=== PATIENT | male | born 1980 | race Caucasian/White ===

== ENCOUNTER 2019-03-24 23:04 | Observation (INO) ==
[2019-03-25] MEDS ORDERED: NORMAL SALINE 1,000 ML IV ONE (00:13)
[2019-03-25] MEDS ORDERED: ONDANSETRON HCL/PF 2 MG/ML VIAL IV PRN (00:13)
--- NOTE | 2019-03-25 00:19 | ERNOTE ---
Abdominal HPI - Narrative Date of Service: 03/25/19 - General Chief Complaint: Abdominal Pain Time Seen by Provider: 03/25/19 00:02 Source: patient, past records Exam Limitations: no limitations - Immun/Allergies/Home Medications Immunizatons: IMMUNIZATION HX Immunizations Up to Date Yes Allergies/Adverse Reactions: Allergies No Known Allergies Allergy (Unverified 03/24/19 23:17) Home Medications: HOME MEDICATIONS NK 03/24/19 [Last Taken Unknown] - History of Present Illness Narrative: This is a 38-year-old gentleman transferred from [facility]. Patient reports around 130 this afternoon he started having right lower quadrant pain. Described as mild to moderate at first. Worse with pressing. Been getting worse throughout the day. Appetite has gone down. Hurts to cough. Does not hurt with bumps in the road. Was seen at the outside hospital and was found to have a white count. CAT scan was performed and the CAT scan demonstrates an appendix at 7 to 8 mm, upper limits of normal, with a significant amount of surrounding edema consistent with early appendicitis. The appendix is located retrocecally. He was transferred here after I spoke with the surgeon on-call, Dr. Nichols who agreed to accept the patient. He came POV. Last meal was this afternoon. Is doing okay pain is only of 3 or 4 right now. No fever that he is aware of. Review of Systems - Review of Systems Constitutional: Present: no symptoms reported EYE: Present: no symptoms reported ENT: Present: no symptoms reported Respiratory: Present: no symptoms reported Cardiology: Present: no symptoms reported Gastrointestinal/Abdominal: Present: See HPI, abdominal pain, eating less Genitourinary: Present: no symptoms reported Musculoskeletal: Present: no symptoms reported Skin: Present: no symptoms reported Neurological: Present: no symptoms reported Endocrine: Present: no symptoms reported Hematologic/Lymphatic: Present: no symptoms reported Psych: Present: no symptoms reported All Other Systems: All systems neg except as marked Medical History (Updated 03/24/19 @ 23:20 by Dorinda Magallanes) No pertinent past medical history Surgical History: Surgical History (Updated 03/24/19 @ 23:20 by Dorinda Magallanes) Hx of vasectomy Family History: Family History (Updated 03/24/19 @ 23:21 by Dorinda Magallanes) Mother Hypertension Uncle Hypertension Social History: Preferred Language Singaporean Smoking Status Current every day smoker Alcohol Use occasionally No Social History Section defined Physical Exam - Physical Exam General Appearance: Present: wd/wn, alert, no apparent distress Head Exam: Present: normal inspection Eye Exam: Normal inspection: bilateral, PERRL: bilateral Ears, Nose, Throat: Present: normal ENT inspection Neck: Present: normal inspection, nontender Respiratory: Present: no respiratory distress, normal breath sounds, lungs clear Cardiovascular/Chest: Present: regular rate, rhythm, no murmur Gastrointestinal/Abdominal: Present: other - Abdomen is soft with normal bowel sounds. He does have a psoas sign on the right. No significant tenderness to palpation anywhere other than the right lower quadrant. No guarding. No real rebound. Negative Ros vague sign. The pain is at McBurney's point Back Exam: Present: normal inspection, no vertebral tenderness Extremity Exam: Present: normal inspection, normal range of motion, no edema Neurological Exam: Present: alert, oriented, normal mood/affect, no motor/sensory deficits Skin Exam: Present: normal color, warm/dry Lymphatic Exam: Present: no adenopathy Progress - Vital Signs Patient's Vital Signs:: I have reviewed the patient's vital signs. Vital Signs: Vital Signs 03/24/19 23:13 Temperature 37 C Pulse Rate 96 Respiratory Rate 18 Blood Pressure 127/73 O2 Sat by Pulse Oximetry 96 - Progress/Reassessment Chief Complaint: Abdominal Pain Plan - Plan Plan: I performed an exam and spoke with the surgeon. She is planning on doing the surgery in the morning. She is agreed that Mefoxin would be appropriate. We will keep n.p.o. Giving fluids. Will give pain medicine and nausea medicine orders for the floor. Departure Clinical Impression: Appendicitis - Departure Disposition: Still a patient Condition: Good
[2019-03-25] MEDS: CEFOXITIN SODIUM 2 GM in DEXTROSE 5 % IN WATER 100 ML IV SCH ×4 (00:31→06:00)
[2019-03-25] MEDS: MORPHINE SULFATE 4 MG/ML SYRG IV SCH ×3 (03:49→08:13)
[2019-03-25] MEDS ORDERED: RINGER'S SOLUTION,LACTATED 1,000 ML IV PRN (07:41)
--- NOTE | 2019-03-25 07:41 | ANES ---
Anesthesia Pre Procedure Eval Vitals/Labs: Last Vital Signs Temp 36.9 C 03/25/19 06:15 Pulse 91 03/25/19 06:15 Resp 16 03/25/19 06:15 BP 105/68 03/25/19 06:15 Pulse Ox 96 03/25/19 06:15 HOME MEDICATIONS NK 03/24/19 [Last Taken Unknown] Allergies/Adverse Reactions: Allergies Allergy/AdvReac Type Severity Reaction Status Date / Time No Known Allergies Allergy Verified 03/25/19 01:02 - Planned Procedure Planned Procedure: APPY Medication List Reviewed:: Yes Allergies Verified: Yes Medical History (Updated 03/25/19 @ 00:19 by Percy Brand MD) No pertinent past medical history Surgical History (Updated 03/24/19 @ 23:20 by Dorinda Magallanes) Hx of vasectomy Family History (Updated 03/24/19 @ 23:21 by Dorinda Magallanes) Mother Hypertension Uncle Hypertension - Family Anesthesia History Family History:: no untoward family reactions to anesthesia, no familial bleeding tendencies, no family history of clotting disorders, no family history of premature - Airway/Neck/Teeth Within Normal Limits:: Yes Teeth Condition: intact Mallampatti Score: 2 Thyromental (T-M) distance: > 6 cm Mandibulo Hyoid distance: > 3 cm - Respiratory Respiratory Physical: lungs clear Smoking Status: Current every day smoker Discussed smoking cessation including day of surgery: Yes Sleep Apnea currently treated: No Sleep Apnea by current assessment: No Discussed Risks/Treatment of TJ: No - Cardiovascular Tolerate Activity: Good Heart Sounds: S1 & S2, Regular - Anesthesia Assessment and Plan ASA Class: PS, II Anesthesia Type Plan: General ET
[2019-03-25] MEDS ORDERED: CEFOXITIN SODIUM 2 GM in DEXTROSE 5 % IN WATER 100 ML IV ONE ×2 (08:03)
--- NOTE | 2019-03-25 08:03 | HP ---
Chief Complaint - Chief Complaint Date of Service: 03/25/19 Time of Service: 07:59 Chief Complaint: acute appendicitis History of Present Illness: Osiel is a pleasant 38-year-old gentleman who developed abdominal pain around 1:30 in the afternoon yesterday. The pain began to worsen. His appetite has decreased. He has pain with movement and was riding in the car. He was seen at an outside hospital and had a CT scan which was consistent with appendicitis. He was transferred here. He is otherwise healthy. He has never had anything like this before. He does not take any home medications. His never had surgery before. Medical History (Updated 03/25/19 @ 00:19 by Percy Brand MD) No pertinent past medical history Surgical History: Surgical History (Updated 03/24/19 @ 23:20 by Dorinda Magallanes) Hx of vasectomy Family History: Family History (Updated 03/24/19 @ 23:21 by Dorinda Magallanes) Mother Hypertension Uncle Hypertension Social History: Patient Lives/Resources With Spouse Utilized Occupation unemployed Preferred Language Maori Do you have any religion or No cultural preference? Smoking Status Current every day smoker Have you smoked in the past 12 Yes months Alcohol Use occasionally No Social History Section defined Review Of Systems (GEN) - Review of Systems Generalized/Overall Review: Present: Malaise EENTM: Present: No Symptoms Reported Respiratory: Present: No Symptoms Reported Cardiac: Present: No Symptoms Reported Abdominal: Present: Abdominal Pain Genitourinary: Present: No Symptoms Reported Musculoskeletal: Present: No Symptoms Reported Neurological: Present: No Symptoms Reported Skin: Present: No Symptoms Reported Endocrine: Present: No Symptoms Reported Immunizations: IMMUNIZATION HX Immunizations Up to Date Yes Allergies/Adverse Reactions: Allergies Allergy/AdvReac Type Severity Reaction Status Date / Time No Known Allergies Allergy Verified 03/25/19 01:02 Home Medications: HOME MEDICATIONS NK 03/24/19 [Last Taken Unknown] Exam - Exam Vital Signs: Vital Signs - Last Taken Temp 36.9 C 03/25/19 06:15 Pulse 91 03/25/19 06:15 Resp 16 03/25/19 06:15 BP 105/68 03/25/19 06:15 Pulse Ox 96 03/25/19 06:15 Constitutional: Present: Alert, Oriented x3, Cooperative ENT Exam: Present: hearing grossly normal Eye Exam: bilateral eye: normal inspection Neck: Present: supple Back Exam: Present: normal inspection Breasts: Present: Exam deferred Respiratory: Present: lungs clear, normal breath sounds Cardiovascular/Chest: Present: regular rate, rhythm Abdomen: Present: soft, no rebound tenderness, tender /Rectal: Present: Exam deferred Extremity: Present: normal range of motion Skin Exam: Present: normal color Neurologic: Present: electronic video games servicer II-XII nml as tested Appearance: Present: appropriate appearance, appropriate insight Eye contact: Present: cooperative, good eye contact Thoughts: Present: normal thought pattern Assessment/Plan - Narrative Narrative: Patient will be taken to the operating room for laparoscopic possible open appendectomy. Risks and benefits of the procedure were discussed with the patient including bleeding, infection, and damage to other organs. He voices understanding and would like to proceed. He has been given antibiotics. We will proceed with going to the operating room this morning. Thank you for allowing me to participate in the care of your patient. - Assessment/Plan (1) Appendicitis Problem: Acute
[2019-03-25] MEDS ORDERED: BUPIVACAINE HCL/EPINEPHRINE 50 ML VIAL IJ ONE (08:55)
[2019-03-25] MEDS ORDERED: HYDROcodone/ACETAMINOPHEN 1 EACH TABLET PO PRN (09:12)
[2019-03-25] MEDS ORDERED: ACETAMINOPHEN 325 MG TABLET PO PRN (09:12)
[2019-03-25] MEDS ORDERED: IBUPROFEN 800 MG TABLET PO PRN (09:12)
[2019-03-25] MEDS ORDERED: POTASSIUM CHLORIDE 20 MEQ in DEXTROSE 5%-0.5 NORMAL SALINE 990 ML IV SCH (09:15)
--- NOTE | 2019-03-25 09:15 | OR ---
Operative Report - Dictated Report Narrative: Date of Service: 03/25/19 Procedure: laparoscopic appendectomy Pre-procedure diagnosis: acute appendicitis Post-procedure diagnosis: same Surgeon: Dr. Margot Nichols Anesthesia: general Indication for procedure: Osiel is a pleasant 38-year-old male with acute appendicitis. Description of procedure: After appropriate informed consent was obtained patient was taken to the operating room, placed in the supine position. General anesthesia was achieved. The RN placed a Stubbs catheter. The patient was prepped and draped in the usual sterile fashion. A 5 mm periumbilical incision was made, hemostat was used to dissect down to the fascia. A Veress needle was inserted, a saline drop test was performed which was satisfactory. The abdomen was insufflated to 15 mmHg. A 5mm blunt trocar was placed at the umbilicus. The camera was inserted, there was no evidence of a trocar injury. A 12 mm trocar was placed in the left lower quadrant of the abdomen. A 5 mm trocar was placed in the suprapubic region. The patient was placed in a head down, rotated left position, to facilitate exposure. The appendix was identified, it appeared consistent with acute appendicitis. A window was made in the mesoappendix. The 45 mm echelon stapler with the white load was placed across the base of the appendix. There was good hemostasis. The echelon 45 mm stapler with a white load was then placed across the mesoappendix. There was good hemostasis. The appendix was removed through an Endo Catch bag. The abdomen was inspected and the staple lines were intact, with good hemostasis. The remainder of the abdomen was inspected and was satisfactory. The 12 mm trocar site was closed with an 0 Vicryl suture. The abdomen was desufflated. Local anesthetic was injected. The incisions were closed with inverted interrupted 4-0 Monocryl sutures. Mastisol and Steri-Strips were applied. The patient tolerated the procedure well and was transported to the PACU in satisfactory condition. Estimated blood loss: minimal Complications: none Specimens to pathology: appendix Disposition: The patient will be admitted to the floor for observation.
--- NOTE | 2019-03-25 09:21 | ANES ---
Post Anesthesia Discharge - Transfer of Care Transfer of Care handoff given to nurse: Yes - Discharge from PACU Discharge from PACU when meets criteria: Yes - Discharge to ASU Discharge to ASU-no complications/pt stable: Yes
--- NOTE | 2019-03-25 09:44 | DS ---
(1) Appendicitis Problem: Acute Qualifiers: Appendicitis type: acute appendicitis Appendicitis gangrene presence: without gangrene Appendicitis perforation presence: without perforation Appendicitis abscess presence: without abscess Description of Stay: Patient was admitted through the emergency room. He was transferred from [place]. He was found to have acute appendicitis on CT scan. He was admitted to the hospital overnight. He was taken to the operating room in the morning. His surgery was uneventful. It was consistent with acute appendicitis, no signs of perforation or gangrene. If he does well postoperatively he can discharge home later today. Procedures Performed: see notes below List Procedures: Laparoscopic appendectomy Discharge Location: Home Disposition: Home self-care Condition: Good Face to Face Encounter completed per [facility] Guidelines: No Discharge Activity: Activity as tolerated Discharge Diet: General/regular food Prescriptions (Any new or edited meds): HYDROcodone/ACETAMINOPHEN [Chinle 5-325] 2 ea PO Q6H PRN #20 tab PRN Reason: Moderate Pain (Pain Scale 4-6) Complete Home Medications List: Complete Home Medication List: HYDROcodone/ACETAMINOPHEN [Chinle 5-325] 2 ea PO Q6H PRN #20 tab 03/25/19
--- NOTE | 2019-03-25 10:30 | ANES ---
Post Anesthesia Assessment - Vital Signs Vitals: Last Vital Signs Temp 36.5 C 03/25/19 09:34 Pulse 64 03/25/19 09:49 Resp 14 03/25/19 09:49 BP 114/64 03/25/19 09:49 Pulse Ox 96 03/25/19 09:49 Airway Patency: Normal - Mental Status Level Of Consciousness: Awake - Pain Level Pain Score: 0 - N/V Assessment Nausea/Vomiting Presence: None Dehydration:: No
[2019-03-25 13:29] VITALS: BP 117/77
== END 2019-03-25 13:52 | disposition home or self-care (01) ==
LOC: MS 23:04 → ER 23:04 → MS 03-25 00:48
PROVIDERS: ADMIT Surgery; ATTEND Surgery
DX: K35.80 Unspecified acute appendicitis
CPT/HCPCS: 88304; 96365; 96366; 99285; G0378